=== PATIENT | male | born 2005 | race Two or more races ===

== ENCOUNTER 2024-02-19 17:31 | Emergency (ER) | payer MEDICAID, SELFPAY ==
[2024-02-19 17:32] VITALS: BMI 24.0
[2024-02-19 18:01] VITALS: BP 135/85; PULSE 81; RESP 18; TEMP 36.6; O2SAT 98
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
[2024-02-19] MEDS: KETOROLAC INJ 60 MG/2 ML VIAL 30 MG IM (18:50)
== END 2024-02-19 19:31 | disposition home or self-care (01) ==
PROVIDERS: Emergency Provider Emergency Medicine; PCP Family Medicine
DX: S29.012A Strain of muscle and tendon of back wall of thorax, initial encounter (principal); V89.2XXA Person injured in unspecified motor-vehicle accident, traffic, initial encounter; Y92.410 Unspecified street and highway as the place of occurrence of the external cause
CPT/HCPCS: 72072; 72100; 96372; 99283; J1885